=== PATIENT | male | born 1980 | race Caucasian/White ===

== ENCOUNTER 2017-08-27 14:11 | Emergency (ER) | payer SELFPAY ==
[~2017-08-27] VITALS: Ht 175.3 cm; Wt 77.3 kg
[2017-08-27 14:12] VITALS: BP 177/106; PULSE 116; RESP 16; TEMP 98.2; O2SAT 98
[2017-08-27 16:19] LABS: AUTOMATED NEUTROPHIL # 8.7 TH/MM3 (1.8-7.7); BASOPHIL # 0.4 TH/MM3 (0-0.2); BASOPHIL % 3.7 % (0.0-2.0); EOSINOPHIL # 0.5 TH/MM3 (0-0.4); EOSINOPHIL % 4.5 % (0.0-4.0); HEMATOCRIT 42.2 % (39.0-51.0); HEMOGLOBIN 14.3 GM/DL (13.0-17.0); LYMPHOCYTE # 1.2 TH/MM3 (1.0-4.8); MEAN CELL VOLUME 84.1 FL (80.0-100.0); MEAN CORPUSCULAR HEMOGLOBIN 28.4 PG (27.0-34.0); MEAN CORPUSCULAR HGB CONC 33.8 % (32.0-36.0); MEAN PLATELET VOLUME 7.2 FL (7.0-11.0); MONO % 2.4 % (0.0-8.0); MONOCYTE # 0.3 TH/MM3 (0-0.9); NEUT % 78.4 % (16.0-70.0); PLATELET COUNT 320 TH/MM3 (150-450); RED BLOOD COUNT 5.02 MIL/MM3 (4.50-5.90); RED CELL DISTRIBUTION WIDTH 13.8 % (11.6-17.2); WHITE BLOOD COUNT 11.1 TH/MM3 (4.0-11.0)
[2017-08-27 16:29] LABS: PROTHROMBIN TIME - PATIENT 10.2 SEC (9.8-11.6)
[2017-08-27 16:50] LABS: ALKALINE PHOSPHATASE 87 U/L (45-117); TOTAL BILIRUBIN ADULT 0.2 MG/DL (0.2-1.0); TOTAL PROTEIN 8.7 GM/DL (6.4-8.2)
[2017-08-27 16:58] LABS: BANDS 3 % (0-6); BASOPHILS 1 % (0-2); LYMPHOCYTES 14 % (9-44); MONOCYTES 3 % (0-8); POLYS (SEG NEUTROPHILS) 78 % (16-70)
[2017-08-27 17:02] LABS: ALBUMIN 3.8 GM/DL (3.4-5.0); ALT (GPT) 156 U/L (12-78); AST (GOT) 85 U/L (15-37); BICARBONATE 28.8 MEQ/L (21.0-32.0); BLOOD UREA NITROGEN 13 MG/DL (7-18); CALCIUM 8.7 MG/DL (8.5-10.1); CHLORIDE 104 MEQ/L (98-107); CREATININE 1.28 MG/DL (0.60-1.30); GLOMERULAR FILTRATION RATE 63 ML/MIN (>89); GLUCOSE,RANDOM 119 MG/DL (74-106); SODIUM (NA) 138 MEQ/L (136-145)
[2017-08-27] MEDS ORDERED: PRIL20TA2 PO (17:30)
[2017-08-27] MEDS ORDERED: SUBO8MIS SL (17:30)
[2017-08-27] MEDS ORDERED: PREV15CA20 PO (17:30)
[2017-08-27] MEDS ORDERED: POTASSIUM CHLORIDE 20 MEQ CONTROLLED RELEASE TAB PO ONE (18:00)
[2017-08-27] MEDS ORDERED: IOHEXOL 350 MG/ML 10 ML VIAL (for RAD DIAG) IVCONTRAST ONE (19:17)
[2017-08-27 19:23] VITALS: BP 189/110; PULSE 109; RESP 17; O2SAT 98
[2017-08-27 19:24] LABS: BILIRUBIN, URINE NEG (NEG); BLOOD, URINE NEG (NEG); GLUCOSE,URINE NEG (NEG); KETONE, URINE NEG (NEG); MUCUS URINE FEW /lpf (OCC); NITRITE,URINE NEG (NEG); SQUAMOUS EPITHELIAL CELL URINE <1 /hpf (0-5); URINE COLOR YELLOW (YELLW/STRAW); URINE LEUKOCYTE ESTERASE NEG (NEG)
--- NOTE | 2017-08-27 19:25 | RADRPT ---
EXAM DATE/TIME: 08/27/2017 19:08 [facility] COMPARISON: No previous studies available for comparison. INDICATIONS : Epigastric abdominal pain. IV CONTRAST: 100 cc Omnipaque 350 (iohexol) IV ORAL CONTRAST: No oral contrast ingested. RADIATION DOSE: 11.89 CTDIvol (mGy) MEDICAL HISTORY : None SURGICAL HISTORY : Previous vascular surgery ENCOUNTER: Initial ACUITY: 1 week PAIN SCALE: 8/10 LOCATION: upper quadrant TECHNIQUE: Volumetric scanning of the abdomen and pelvis was performed. Using automated exposure control and ad justment of the mA and/or kV according to patient size, radiation dose was kept as low as reasonably achievable to obtain optimal diagnostic quality images. DICOM format image data is available electro nically for review and comparison. FINDINGS: LOWER LUNGS: The visualized lower lungs are clear. LIVER: Homogeneous density without lesion. There is no dilation of the biliary tree. No calcified gallston es. Numerous vascular coils are seen in the region of the jeanie hepatis. No hematoma or evidence of l eak. SPLEEN: Normal size without lesion. PANCREAS: Within normal limits. KIDNEYS: Normal in size and shape. There is no mass, stone or hydronephrosis. ADRENAL GLANDS: Within normal limits. VASCULAR: There is no aortic aneurysm. BOWEL/MESENTERY: The stomach, small bowel, and colon demonstrate no acute abnormality. There is no free intraperitone al air or fluid. ABDOMINAL WALL: Within normal limits. RETROPERITONEUM: There is no lymphadenopathy. BLADDER: No wall thickening or mass. REPRODUCTIVE: Within normal limits. INGUINAL: There is no lymphadenopathy or hernia. MUSCULOSKELETAL: Within normal limits for patient age. CONCLUSION: No acute abnormalities are demonstrated. There is evidence of previous vascular coiling in the region of the jeanie hepatis without perceptible acute complication. The rest of the CT is normal. Misha Eugene MD on August 27, 2017 at 19:18 Board Certified Radiologist. This report was verified electronically.
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
[2017-08-27] MEDS ORDERED: KETOROLAC TROMETHAMINE 30 MG/ML (IVP) VIAL IV PUSH ONE (19:45)
== END 2017-08-27 19:59 | disposition home or self-care (01) ==
LOC: NEPD 14:11
DX: R10.84 Generalized abdominal pain (principal)
CPT/HCPCS: 74177; 80053; 81001; 83690; 85007; 85027; 85610; 85730; 96374; 99284; J1885; Q9967

== ENCOUNTER 2017-09-14 06:00 | Emergency (ER) | payer SELFPAY ==
[~2017-09-14] VITALS: Ht 175.3 cm; Wt 80.0 kg
[~2017-09-14 06:00] MED LIST: PREV15CA20 PO; PRIL20TA2 PO; SUBO8MIS SL
[2017-09-14 06:03] VITALS: BP 143/82; PULSE 101; RESP 18; TEMP 97.5; O2SAT 99
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
== END 2017-09-14 06:20 | disposition left against medical advice (07) ==
LOC: NEPD 06:00
DX: M54.5 Low back pain (principal)
CPT/HCPCS: 99281

== ENCOUNTER 2017-10-05 08:18 | Emergency (ER) | payer SELFPAY ==
[~2017-10-05] VITALS: Ht 175.3 cm; Wt 85.0 kg
[~2017-10-05 08:18] MED LIST changes: -PREV15CA20 PO; -PRIL20TA2 PO
[2017-10-05 08:22] VITALS: BP 149/79; PULSE 104; RESP 18; TEMP 98; O2SAT 97
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
[2017-10-05] MEDS ORDERED: SODIUM CHLOR 0.9% 1000 ML INJ 1,000 ML IV SCH (09:22)
[2017-10-05] MEDS ORDERED: SODIUM CHLORIDE 0.9% FLUSH 10 ML FLUSH IV FLUSH PRN (09:30)
[2017-10-05] MEDS ORDERED: DICYCLOMINE HCL 20 MG/2 ML VIAL IM ONE (09:30)
[2017-10-05] MEDS ORDERED: KETOROLAC TROMETHAMINE 30 MG/ML (IVP) VIAL IVP ONE (09:30)
[2017-10-05] MEDS ORDERED: cloNIDine HCL 0.1 MG TAB PO ONE (09:30)
[2017-10-05 09:47] VITALS: BP 170/103; PULSE 100; PULSE 86; RESP 24; O2SAT 100
--- NOTE | 2017-10-05 09:51 | RADRPT ---
EXAM DATE/TIME: 10/05/2017 09:37 [facility] COMPARISON: No previous studies available for comparison. INDICATIONS : Evaluate for foreign body, patient has a punture wound on the plantar surface. MEDICAL HISTORY : None. SURGICAL HISTORY : None. ENCOUNTER: Initial ACUITY: 1 day PAIN SCORE: 3/10 LOCATION: Right Foot FINDINGS: Three view examination of the right foot demonstrates no dislocation, or fracture. Soft tissue promi nence overlying the plantar forefoot. The tarsal bones appear intact. The interphalangeal and metata rsophalangeal joints are intact. The calcaneus is intact. Bony mineralization is normal. CONCLUSION: 1. No radiopaque foreign bodies. Artemio Cordova MD on October 05, 2017 at 9:48 Board Certified Radiologist. This report was verified electronically.
--- NOTE | 2017-10-05 10:03 | PD ---
Physical Exam Narrative I, Dr. Haro, have reviewed the advance practice practitioner's documentation and am in agreement, met with the patient face to face, made the diagnosis, and the medical decision making was done by me. *My assessment and Findings: Opiate withdrawal vs. Scab in right foot vs. infection 37yo M with heroin abuse here with complain of heroin withdrawal symptoms for 2 days. He would like medication for that. Pt also with a wound in plantar surface of right foot for a while. Said he step on something. Denies any fever , drainage. Xray right foot showed no radiopaque foreign bodies. Pt is mildly tachycardic at 104bpm. Pt given dicyclomine, toradol, hydroxyzine, clonidine and NS IVF. Pt said he snorted heroin and did not inject. Said he is not interested in detox but just wants medication for withdrawal. Labs reviewed, no leukocytosis. AST/ALT elevated but at baseline compare to last labs. Pt instructed to follow up with Thony Winn. Return precautions given. Data Data Last Documented VS Vital Signs Date Time Temp Pulse Resp B/P (MAP) Pulse Ox O2 Delivery O2 Flow Rate FiO2 10/05/17 09:47 86 24 170/103 (125) 100 10/05/17 08:22 98.0 Orders Orders Complete Blood Count With Diff (10/05/17:22) Comprehensive Metabolic Panel (10/05/17:22) Prothrombin Time / Inr (Pt) (10/05/17:22) Act Partial Throm Time (Ptt) (10/05/17:22) Iv Access Insert/Monitor (10/05/17:22) Ecg Monitoring (10/05/17:22) Oximetry (10/05/17:22) Sodium Chlor 0.9% 1000 Ml Inj (Ns 1000 M (10/05/17:22) Sodium Chloride 0.9% Flush (Ns Flush) (10/05/17 09:30) Dicyclomine Inj (Bentyl Inj) (10/05/17 09:30) Ketorolac Inj (Toradol Inj) (10/05/17 09:30) Hydroxyzine Hcl Inj (Vistaril Inj) (10/05/17 09:30) Clonidine (Catapres) (10/05/17 09:30) Foot, Complete ([id number]) (10/05/17 09:22) Labs Laboratory Tests Test 10/05/17 10:15 White Blood Count 8.7 TH/MM3 Red Blood Count 5.01 MIL/MM3 Hemoglobin 14.6 GM/DL Hematocrit 43.5 % Mean Corpuscular Volume 86.8 FL Mean Corpuscular Hemoglobin 29.1 PG Mean Corpuscular Hemoglobin Concent 33.5 % Red Cell Distribution Width 14.5 % Platelet Count 245 TH/MM3 Mean Platelet Volume 7.5 FL Neutrophils (%) (Auto) 79.0 % Lymphocytes (%) (Auto) 14.3 % Monocytes (%) (Auto) 4.1 % Eosinophils (%) (Auto) 2.0 % Basophils (%) (Auto) 0.6 % Neutrophils # (Auto) 6.9 TH/MM3 Lymphocytes # (Auto) 1.2 TH/MM3 Monocytes # (Auto) 0.4 TH/MM3 Eosinophils # (Auto) 0.2 TH/MM3 Basophils # (Auto) 0.1 TH/MM3 CBC Comment DIFF FINAL Differential Comment Prothrombin Time 10.7 SEC Prothromb Time International Ratio 1.1 RATIO Activated Partial Thromboplast Time 25.1 SEC Blood Urea Nitrogen 13 MG/DL Creatinine 1.18 MG/DL Random Glucose 100 MG/DL Total Protein 8.6 GM/DL Albumin 4.1 GM/DL Calcium Level 9.0 MG/DL Alkaline Phosphatase 80 U/L Aspartate Amino Transf (AST/SGOT) 72 U/L Alanine Aminotransferase (ALT/SGPT) 140 U/L Total Bilirubin 0.8 MG/DL Sodium Level 141 MEQ/L Potassium Level 3.7 MEQ/L Chloride Level 108 MEQ/L Carbon Dioxide Level 26.5 MEQ/L Anion Gap 7 MEQ/L Estimat Glomerular Filtration Rate 69 ML/MIN [facility] Supervised Visit with LONI: Yes Diagnosis Primary Impression: Heroin withdrawal Condition: Stable Nithya Haro DO Oct 05, 2017 10:03
[2017-10-05 10:30] LABS: AUTOMATED NEUTROPHIL # 6.9 TH/MM3 (1.8-7.7); BASOPHIL # 0.1 TH/MM3 (0-0.2); BASOPHIL % 0.6 % (0.0-2.0); EOSINOPHIL # 0.2 TH/MM3 (0-0.4); HEMATOCRIT 43.5 % (39.0-51.0); HEMOGLOBIN 14.6 GM/DL (13.0-17.0); LYMPH % 14.3 % (9.0-44.0); LYMPHOCYTE # 1.2 TH/MM3 (1.0-4.8); MEAN CELL VOLUME 86.8 FL (80.0-100.0); MEAN CORPUSCULAR HEMOGLOBIN 29.1 PG (27.0-34.0); MEAN CORPUSCULAR HGB CONC 33.5 % (32.0-36.0); MEAN PLATELET VOLUME 7.5 FL (7.0-11.0); MONO % 4.1 % (0.0-8.0); MONOCYTE # 0.4 TH/MM3 (0-0.9); PLATELET COUNT 245 TH/MM3 (150-450); RED BLOOD COUNT 5.01 MIL/MM3 (4.50-5.90); RED CELL DISTRIBUTION WIDTH 14.5 % (11.6-17.2); WHITE BLOOD COUNT 8.7 TH/MM3 (4.0-11.0)
[2017-10-05 10:40] LABS: INTERNATIONAL NORMALIZED RATIO 1.1 RATIO; PROTHROMBIN TIME - PATIENT 10.7 SEC (9.8-11.6)
[2017-10-05 10:45] LABS: ALBUMIN 4.1 GM/DL (3.4-5.0); ALT (GPT) 140 U/L (12-78); AST (GOT) 72 U/L (15-37); BICARBONATE 26.5 MEQ/L (21.0-32.0); BLOOD UREA NITROGEN 13 MG/DL (7-18); CHLORIDE 108 MEQ/L (98-107); CREATININE 1.18 MG/DL (0.60-1.30); GLOMERULAR FILTRATION RATE 69 ML/MIN (>89); GLUCOSE,RANDOM 100 MG/DL (74-106); SODIUM (NA) 141 MEQ/L (136-145)
[2017-10-05 10:47] LABS: ALKALINE PHOSPHATASE 80 U/L (45-117); TOTAL BILIRUBIN ADULT 0.8 MG/DL (0.2-1.0); TOTAL PROTEIN 8.6 GM/DL (6.4-8.2)
[2017-10-05] MEDS ORDERED: CLON0.1T PO (10:58)
[2017-10-05] MEDS ORDERED: VIST25CA PO (10:58)
[2017-10-05] MEDS ORDERED: CLIN300C5 PO (10:58)
[2017-10-05] MEDS ORDERED: IBUP-232 PO (10:58)
[2017-10-05 11:50] VITALS: BP 168/86
== END 2017-10-05 11:50 | disposition home or self-care (01) ==
LOC: NEPD 08:18
DX: F11.23 Opioid dependence with withdrawal (principal); S91.331A Puncture wound without foreign body, right foot, initial encounter; X58.XXXA Exposure to other specified factors, initial encounter; G89.29 Other chronic pain; M54.9 Dorsalgia, unspecified; I71.4 Abdominal aortic aneurysm, without rupture; Z87.891 Personal history of nicotine dependence
CPT/HCPCS: 73630; 80053; 85025; 85610; 85730; 96372; 96374; 99284; J0500; J1885; J3410; J7030

== ENCOUNTER 2017-10-27 02:54 | Emergency (ER) | payer SELFPAY ==
[~2017-10-27] VITALS: Ht 175.3 cm; Wt 75.0 kg
[~2017-10-27 02:54] MED LIST changes: +CLIN300C5 PO; +CLON0.1T PO; +IBUP-232 PO; +VIST25CA PO
[2017-10-27 03:16] VITALS: BP 137/93; PULSE 93; RESP 16; O2SAT 98
--- NOTE | 2017-10-27 04:20 | RADRPT ---
EXAM DATE/TIME: 10/27/2017 03:57 [place] COMPARISON: No previous studies available for comparison. INDICATIONS : Tailbone pain after fall on tailgate. MEDICAL HISTORY : None. SURGICAL HISTORY : None. ENCOUNTER: Initial ACUITY: 1 day PAIN SCORE: 8/10 LOCATION: Bilateral lower back. FINDINGS: Two-view examination of the sacrum and coccyx demonstrates no evidence of fracture or malalignment. The sacral ala and foramina appear symmetric and intact. The coccyx appears unremarkable. The preve rtebral soft tissues are within normal limits. Mild degenerative changes lumbosacral junction. CONCLUSION: No fracture. Parrish Bautista MD on October 27, 2017 at 4:18 Board Certified Radiologist. This report was verified electronically.
[2017-10-27] MEDS ORDERED: IBUP1TAB7 PO (04:49)
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
[2017-10-27] MEDS ORDERED: KETOROLAC TROMETHAMINE 60 MG/2 ML (IM) VIAL IM ONE (05:00)
== END 2017-10-27 05:05 | disposition home or self-care (01) ==
LOC: NED 02:54
DX: S30.0XXA Contusion of lower back and pelvis, initial encounter (principal); F11.90 Opioid use, unspecified, uncomplicated; V89.9XXA Person injured in unspecified vehicle accident, initial encounter; Z88.2 Allergy status to sulfonamides; Z79.899 Other long term (current) drug therapy; Z87.891 Personal history of nicotine dependence
CPT/HCPCS: 72220; 96372; 99283; J1885